=== PATIENT | female | born 1960 | race Two or more races ===

== ENCOUNTER → 2016-12-02 | Outpatient (CLI) | payer MEDICAID ==
[2016-12-02 10:38] LABS: HEMATOCRIT 40.6 % (36.0-47.0); HEMOGLOBIN 13.5 g/dL (12.0-15.5); HGB HCT DIFFERENCE -0.1; MEAN CORPUSCULAR HEMOGLOBIN 29.5 pg (27.0-33.4); MEAN CORPUSCULAR HGB CONC 33.4 g/dL (32.0-36.0); MEAN CORPUSCULAR VOLUME 88 fl (80-97); RED BLOOD COUNT 4.59 10^6/uL (3.72-5.28); RED CELL DISTRIBUTION WIDTH 13.1 % (11.5-14.0); WHITE BLOOD COUNT 5.5 10^3/uL (4.0-10.5)
[2016-12-02 11:08] LABS: ALBUMIN 4.4 g/dL (3.5-5.0); BILIRUBIN,TOTAL 0.4 mg/dL (0.2-1.3); TOTAL PROTEIN 6.8 g/dL (6.3-8.2)
== END ==
LOC: OD 10:01
PROVIDERS: ATTEND Specialist
DX: G40.89 Other seizures (principal); Z79.899 Other long term (current) drug therapy
CPT/HCPCS: 36415; 80076; 80175; 85027

== ENCOUNTER → 2017-08-15 | Outpatient (CLI) | payer SELFPAY ==
[2017-08-15 12:14] LABS: ABSOLUTE BASOPHILS # (AUTO) 0.1 10^3/uL (0.0-0.2); ABSOLUTE EOSINOPHILS # (AUTO) 0.2 10^3/uL (0.0-0.6); ABSOLUTE LYMPHOCYTES (AUTO) 1.7 10^3/uL (0.5-4.7); ABSOLUTE MONOCYTES (AUTO) 0.4 10^3/uL (0.1-1.4); ABSOLUTE NEUT (AUTO) 3.6 10^3/uL (1.7-8.2); BASOPHILS % (AUTO) 0.8 % (0-2); EOSINOPHILS % (AUTO) 2.9 % (0-6); HEMATOCRIT 37.9 % (36.0-47.0); HEMOGLOBIN 13.1 g/dL (12.0-15.5); HGB HCT DIFFERENCE 1.4; LYMPHOCYTES % (AUTO) 28.2 % (13-45); MEAN CORPUSCULAR HEMOGLOBIN 30.9 pg (27.0-33.4); MEAN CORPUSCULAR HGB CONC 34.6 g/dL (32.0-36.0); MEAN CORPUSCULAR VOLUME 89 fl (80-97); MONOCYTES % (AUTO) 7.2 % (3-13); RED BLOOD COUNT 4.24 10^6/uL (3.72-5.28); RED CELL DISTRIBUTION WIDTH 12.5 % (11.5-14.0); SEGMENTED NEUTROPHILS % (AUTO) 60.9 % (42-78)
[2017-08-15 12:41] LABS: ALANINE AMINOTRANSFERASE 48 U/L (9-52); ALBUMIN 4.6 g/dL (3.5-5.0); ALKALINE PHOSPHATASE 98 U/L (38-126); ASPARTATE AMINO TRANSFERASE 33 U/L (14-36); BILIRUBIN,DIRECT 0.5 mg/dL (0.0-0.4); BILIRUBIN,TOTAL 0.5 mg/dL (0.2-1.3)
== END ==
LOC: OD 11:23
PROVIDERS: ATTEND Specialist
DX: G40.89 Other seizures (principal); Z79.899 Other long term (current) drug therapy
CPT/HCPCS: 36415; 80076; 80175; 85025

== ENCOUNTER → 2018-08-20 | Outpatient (CLI) | payer MEDICARE, MEDICAID ==
[2018-08-20 10:51] LABS: HEMATOCRIT 38.6 % (36.0-47.0); HEMOGLOBIN 13.2 g/dL (12.0-15.5); MEAN CORPUSCULAR HEMOGLOBIN 30.3 pg (27.0-33.4); MEAN CORPUSCULAR HGB CONC 34.2 g/dL (32.0-36.0); MEAN CORPUSCULAR VOLUME 89 fl (80-97); PLATELET COUNT 263 10^3/uL (150-450); RED BLOOD COUNT 4.36 10^6/uL (3.72-5.28); RED CELL DISTRIBUTION WIDTH 12.1 % (11.5-14.0); WHITE BLOOD COUNT 4.8 10^3/uL (4.0-10.5)
[2018-08-20 11:16] LABS: ALANINE AMINOTRANSFERASE 37 U/L (9-52); ALBUMIN 4.4 g/dL (3.5-5.0); ALKALINE PHOSPHATASE 118 U/L (38-126); ASPARTATE AMINO TRANSFERASE 39 U/L (14-36); BILIRUBIN,DIRECT 0.2 mg/dL (0.0-0.4); BILIRUBIN,TOTAL 0.3 mg/dL (0.2-1.3); TOTAL PROTEIN 7.3 g/dL (6.3-8.2)
== END ==
LOC: OD 09:46
PROVIDERS: ATTEND Specialist
DX: G40.89 Other seizures (principal); Z79.899 Other long term (current) drug therapy
CPT/HCPCS: 36415; 80076; 80175; 80177; 85027

== ENCOUNTER 2018-10-11 15:53 | Emergency (ER) | payer MEDICARE, MEDICAID ==
[2018-10-11] MEDS ORDERED: ACETAMINOPHEN 325 MG TABLET PO ONE (17:13)
[2018-10-11] MEDS ORDERED: DIPH/PERTUSS(ACELL)/TETANUS VAC/PF 0.5 ML SYR (>=10YO) IM ONE (17:13)
--- NOTE | 2018-10-11 17:15 | ER Document Report ---
HPI - HPI Patient complains to provider of: Head laceration Time Seen by Provider: 10/11/18 17:03 Onset: Just prior to arrival Onset/Duration: Sudden Quality of pain: Achy Pain Level: 1 Context: Patient states that she has foot drop to her left foot and will have frequent falls at home. Patient states she was attempting to go up the stairs and lost her footing and fell. Patient reports hitting her head on the step. Patient denies any loss of consciousness nausea or vomiting. Patient with small laceration to the right lateral brow area. Associated Symptoms: Other - Facial laceration Exacerbated by: Denies Relieved by: Denies Similar symptoms previously: Yes Recently seen / treated by doctor: No - ROS ROS below otherwise negative: Yes Systems Reviewed and Negative: Yes All other systems reviewed and negative - CONSTITUTIONAL Constitutional: DENIES: Fever - NEURO Neurology: REPORTS: Headache. DENIES: Weakness, Vision blurred, Dizzinesss / Vertigo - CARDIOVASCULAR Cardiovascular: DENIES: Chest pain - GASTROINTESTINAL Gastrointestinal: DENIES: Nausea, Patient vomiting - REPRODUCTIVE Reproductive: DENIES: : - MUSCULOSKELETAL Musculoskeletal: DENIES: Back Pain, Neck Pain - DERM Skin Color: Normal Skin Problems: Laceration Past Medical History - General Information source: Patient - Social History Smoking Status: Never Smoker Frequency of alcohol use: None Drug Abuse: None Occupation: None Lives with: Spouse/Significant other Family History: Reviewed & Not Pertinent - Past Medical History Cardiac Medical History: Reports: Hx Hypercholesterolemia, Hx Hypertension Pulmonary Medical History: Reports: Hx Asthma Denies: Hx Tuberculosis Neurological Medical History: Reports: Hx Seizures Musculoskeletal Medical History: Reports Other - Left foot drop Psychiatric Medical History: Reports: Hx Attention Deficit Hyperactivity Disorder, Hx Depression, Hx Schizophrenia Past Surgical History: Reports: Hx Neurologic Surgery - brain sx - Immunizations Immunizations up to date: Yes Hx Diphtheria, Pertussis, Tetanus Vaccination: No Hx Pneumococcal Vaccination: 10/15/13 Vertical Provider Document - CONSTITUTIONAL Agree With Documented VS: Yes Exam Limitations: No Limitations General Appearance: WD/WN, No Apparent Distress - INFECTION CONTROL TRAVEL OUTSIDE OF THE [place] IN LAST 30 DAYS: No - HEENT HEENT: Normal ENT Exam, Normocephalic, PERRLA Notes: Half centimeter laceration to the right brow area, EOMI - NECK Neck: Normal Inspection, Supple. negative: Lymphadenopathy-Left, Lymphadenopathy-Right - RESPIRATORY Respiratory: Breath Sounds Normal, No Respiratory Distress - CARDIOVASCULAR Cardiovascular: Regular Rate, Regular Rhythm - MUSCULOSKELETAL/EXTREMETIES Musculoskeletal/Extremeties: MAEW - NEURO Level of Consciousness: Awake, Alert, Appropriate Motor/Sensory: No Motor Deficit - DERM Integumentary: Warm, Dry, Laceration - 1/2 cm lac to right brow Course - Re-evaluation Re-evalutation: 10/11/18 The patient presents with headache without signs of SPOKE MAKER bleed, stroke, infection, or other serious etiology. The patient is neurologically intact. Given the extremely low risk of these diagnoses further testing and evaluation for these possibilities does not appear to be indicated at this time. The patient has been instructed to return if the symptoms worsen or change in any way. - Vital Signs Vital signs: Temp Pulse Resp BP Pulse Ox 97.9 F 59 L 16 116/66 98 10/11/18 16:01 10/11/18 16:01 10/11/18 16:01 10/11/18 16:01 10/11/18 16:01 Procedures - Laceration/Wound Repair Right Face Wound length (cm): 0.5 Wound's Depth, Shape: Irregular Laceration pre-procedure: Shur-Clens applied Wound explored: Clean Wound Repaired With: Dermabond Post-procedure NV exam normal: Yes Complications: No Adult Head Front/Back picture: 1 - lac Discharge - Discharge Clinical Impression: Head injury Qualifiers: Encounter type: initial encounter Qualified Code(s): S09.90XA - Unspecified inj ury of head, initial encounter Facial laceration Qualifiers: Encounter type: initial encounter Qualified Code(s): S01.81XA - Laceration without foreign body of other part of head, initial encounter Condition: Stable Disposition: HOME, SELF-CARE Instructions: Acetaminophen, Facial Laceration ([facility]), Head Injury Precautions ([facility]), Skin Adhesive Closure ([facility]) Additional Instructions: Return immediately for any new or worsening symptoms Followup with your primary care provider, call tomorrow to make a followup appointment Referrals: JOSIAS DENNIS MD [NO LOCAL MD] - Follow up as needed
--- NOTE | 2018-10-11 17:54 | RADIOLOGY REPORT (SQ) ---
EXAM DESCRIPTION: CT ORBIT/SELLA WITHOUT COMPLETED DATE/TIME: 10/11/2018 5:42 pm REASON FOR STUDY: fall, facial injury COMPARISON: None. TECHNIQUE: Noncontrasted images through the orbits windowed for bone and soft tissue. Additional co jn and sagittal reconstructed images reviewed. All images stored on PACS. All CT scanners at this facility use dose modulation, iterative reconstruction, and/or weight based d osing when appropriate to reduce radiation dose to as low as reasonably achievable (ALARA). [facility]: Dose Right [facility]: CareDose [facility]: Dose Right [facility]: Teradose 4D [facility]: [employer] RADIATION DOSE: CT Rad equipment meets quality standard of care and radiation dose reduction techniq ues were employed. CTDIvol: 30.4 mGy. DLP: 310 mGy-cm. mGy. LIMITATIONS: None. FINDINGS: FACIAL BONES: No fracture or bone lesion. ORBITS: Intact. No fracture. Symmetric intact globes and retroorbital soft tissues. PARANASAL SINUSES: Clear. No significant mucosal thickening, mass or fluid. No nasal polyps. Maxilla ry sinus outlets are patent. SOFT TISSUES: No mass or edema. INFERIOR BRAIN: Limited view. No acute findings. OTHER: No other significant finding. IMPRESSION: NO ACUTE FINDINGS. TECHNICAL DOCUMENTATION: JOB ID: [id number] Quality ID # [id number]: Final reports with documentation of one or more dose reduction techniques (e.g., Au tomated exposure control, adjustment of the mA and/or kV according to patient size, use of iterative reconstruction technique) 2010 [employer]- All Rights Reserved Reading location - IP/workstation name: [email or web address]
[2018-10-11 18:16] VITALS: BP 121/63
== END 2018-10-11 18:24 | disposition home or self-care (01) ==
LOC: ER 15:53
DX: S01.81XA Laceration without foreign body of other part of head, initial encounter (principal); S09.90XA Unspecified injury of head, initial encounter; W10.9XXA Fall (on) (from) unspecified stairs and steps, initial encounter; Y92.009 Unspecified place in unspecified non-institutional (private) residence as the place of occurrence of the external cause; E78.00 Pure hypercholesterolemia, unspecified; I10 Essential (primary) hypertension; Z23 Encounter for immunization
CPT/HCPCS: 99283; 90471; 70480; 90715; 12011; A9270

== ENCOUNTER 2019-01-04 09:20 | Emergency (ER) | payer MEDICARE, MEDICAID ==
[2019-01-04] MEDS ORDERED: NORMAL SALINE 1000 ML 1,000 ML IV ONE (09:36)
[2019-01-04] MEDS ORDERED: ONDANSETRON HCL INJ/PF 4 MG/2 ML SDV IV ONE (09:36)
--- NOTE | 2019-01-04 09:38 | ER Document Report ---
ED Medical Screen (RME) - General Chief Complaint: Vomiting Stated Complaint: VOMITING Time Seen by Provider: 01/04/19 09:32 Mode of Arrival: Ambulatory Information source: Patient Notes: Patient is a 58-year-old female who presents to the emergency department after multiple episodes of vomiting this morning that she states had blood in it. Patient reports that she was undergoing a bowel prep for a colonoscopy that was scheduled for today when she began vomiting. Patient states she had just finished drinking her GoLYTELY. She reports the vomit was clear with red tinges so she believes it was blood. Patient denies any other symptoms at this time other than a mild headache. Exam: Patient alert, oriented and answering all questions appropriately. Abdomen soft. I have greeted and performed a rapid initial assessment of this patient. A comprehensive ED assessment and evaluation of the patient, analysis of test results and completion of the medical decision making process will be conducted by additional ED providers. Dictation of this chart was performed using voice recognition software; therefore, there may be some unintended grammatical errors. TRAVEL OUTSIDE OF THE [place] IN LAST 30 DAYS: No - Related Data Allergies/Adverse Reactions: No Known Allergies Allergy (Verified 10/11/18 15:56) Past Medical History - Past Medical History Cardiac Medical History: Reports: Hx Hypercholesterolemia, Hx Hypertension Pulmonary Medical History: Reports: Hx Asthma Denies: Hx Tuberculosis Neurological Medical History: Reports: Hx Seizures Renal/ Medical History: Denies: Hx Peritoneal Dialysis Psychiatric Medical History: Reports: Hx Attention Deficit Hyperactivity Disorder, Hx Depression, Hx Schizophrenia Past Surgical History: Reports: Hx Neurologic Surgery - brain sx - Immunizations Immunizations up to date: Yes Hx Diphtheria, Pertussis, Tetanus Vaccination: No Physical Exam - Vital signs Vitals: Temp Pulse Resp BP Pulse Ox 98.2 F 66 14 149/77 H 97 01/04/19 09:25 01/04/19 09:25 01/04/19 09:25 01/04/19 09:25 01/04/19 09:25 Course - Vital Signs Vital signs: Temp Pulse Resp BP Pulse Ox 98.2 F 66 14 149/77 H 97 01/04/19 09:25 01/04/19 09:25 01/04/19 09:25 01/04/19 09:25 01/04/19 09:25
[2019-01-04 10:13] LABS: ABSOLUTE LYMPHOCYTES (AUTO) 0.8 10^3/uL (0.5-4.7); ABSOLUTE MONOCYTES (AUTO) 0.3 10^3/uL (0.1-1.4); ABSOLUTE NEUT (AUTO) 5.1 10^3/uL (1.7-8.2); BASOPHILS % (AUTO) 0.3 % (0-2); EOSINOPHILS % (AUTO) 0.8 % (0-6); HEMOGLOBIN 13.4 g/dL (12.0-15.5); LYMPHOCYTES % (AUTO) 12.5 % (13-45); MEAN CORPUSCULAR HEMOGLOBIN 30.3 pg (27.0-33.4); MEAN CORPUSCULAR HGB CONC 33.6 g/dL (32.0-36.0); MEAN CORPUSCULAR VOLUME 90 fl (80-97); MONOCYTES % (AUTO) 4.8 % (3-13); PLATELET COUNT 244 10^3/uL (150-450); RED BLOOD COUNT 4.43 10^6/uL (3.72-5.28); RED CELL DISTRIBUTION WIDTH 12.8 % (11.5-14.0); SEGMENTED NEUTROPHILS % (AUTO) 81.6 % (42-78); TOTAL CELLS COUNTED % (AUTO) 100 %; WHITE BLOOD COUNT 6.2 10^3/uL (4.0-10.5)
--- NOTE | 2019-01-04 10:17 | ER Document Report ---
ED GI/ - General Chief Complaint: Vomiting Stated Complaint: VOMITING Time Seen by Provider: 01/04/19 09:32 Primary Care Provider: RUBEN VIRAMONTES PA-C [Primary Care Provider] - Follow up as needed Mode of Arrival: Ambulatory Notes: Patient was scheduled for a routine colonoscopy this morning. She had a previous colonoscopy 5 or 6 years ago which showed polyps, but she is currently having no symptoms. She was doing her prep consisting of magnesium citrate and Dulcolax suppositories Monday night, followed yesterday by Shannon she began vomiting about 4 AM this morning and is vomited a total of 3-4 times. She vomited on the floor next to her bed. She says that 2 of the episodes of vomiting had "globs of blood". She has not vomited since about 5 AM. Denies any abdominal pains. She was scheduled for her colonoscopy at 8 AM this morning, but is unable to go there. Patient has never had any gastrointestinal diseases or bleeding, either vomiting blood or passing blood by rectum. Currently has no other symptoms. Has not had any recent illness or fever. PMH: Seizures, depression, vertigo. TRAVEL OUTSIDE OF THE [place] IN LAST 30 DAYS: No - Related Data Allergies/Adverse Reactions: No Known Allergies Allergy (Verified 10/11/18 15:56) Past Medical History - General Information source: Patient - Social History Smoking Status: Unknown if Ever Smoked Family History: Reviewed & Not Pertinent Patient has suicidal ideation: No Patient has homicidal ideation: No - Past Medical History Cardiac Medical History: Reports: Hx Hypercholesterolemia Pulmonary Medical History: Reports: Hx Asthma Neurological Medical History: Reports: Hx Seizures - On Keppra, Lamictal, and Topamax Psychiatric Medical History: Reports: Hx Attention Deficit Hyperactivity Disorder, Hx Depression Past Surgical History: Reports: Hx Neurologic Surgery - clot removal from brain bleed 30 years ago. - Immunizations Immunizations up to date: Yes Hx Diphtheria, Pertussis, Tetanus Vaccination: No Hx Pneumococcal Vaccination: 10/15/13 Review of Systems - Review of Systems Notes: REVIEW OF SYSTEMS: CONSTITUTIONAL : Denies fever. EENT: Denies eye, ear, nose or mouth or throat pain or other symptoms. CARDIOVASCULAR: Denies chest pain. RESPIRATORY: Denies cough, chest congestion, or shortness of breath. GASTROINTESTINAL: See HPI. GENITOURINARY: Denies difficulty or painful urinating, urinary frequency, blood in urine. MUSCULOSKELETAL: Denies back or neck pain. Denies joint pain or swelling. SKIN: Denies rash or skin lesions. NEUROLOGICAL: Denies LOC or altered mental status. Denies headache. Denies sensory loss or motor deficits. History of vertigo on meclizine. ALL OTHER SYSTEMS REVIEWED AND NEGATIVE. Physical Exam - Vital signs Vitals: Temp Pulse Resp BP Pulse Ox 98.2 F 66 14 149/77 H 97 01/04/19 09:25 01/04/19 09:25 01/04/19 09:25 01/04/19 09:25 01/04/19 09:25 Interpretation: Normal. No: Hypotensive, Tachycardic, Febrile Notes: PHYSICAL EXAMINATION: GENERAL: Well-appearing, in no acute distress. Vital signs are all normal. HEAD: Atraumatic, normocephalic. EYES: Pupils equal round and reactive to light, extraocular movements intact. ENT: oropharynx clear without exudates. Moist mucous membranes. NECK: Normal range of motion, supple. LUNGS: Breath sounds clear and equal bilaterally. HEART: Regular rate and rhythm without murmurs. ABDOMEN: Soft, nontender. No guarding or rebound. No masses. BACK: No tenderness throughout entire back. EXTREMITIES: Normal range of motion without pain. NEUROLOGICAL: Normal speech, normal gait. Normal sensory, motor, and reflex exams. Awake, alert, and oriented x3. PSYCH: Normal mood, normal affect. SKIN: Warm, dry, no rashes. Course - Re-evaluation Re-evalutation: 01/04/19 10:18 Patient appears well. Routine labs will be ordered. She will receive some IV fluids and IV Zofran. 01/04/19 12:43 Patient's hemoglobin is 13.4. She consistently has a hemoglobin in the 13's going all the way back to August 2016. All the remaining lab studies are essentially normal. Patient is feeling much better. No further vomiting. No nausea at this time. We will send her home with a prescription for Zofran should she needed. Follow-up with her GI doctor. - Vital Signs Vital signs: Temp Pulse Resp BP Pulse Ox 98.2 F 66 14 149/77 H 97 01/04/19 09:25 01/04/19 09:25 01/04/19 09:25 01/04/19 09:25 01/04/19 09:25 - Laboratory Result Diagrams: 01/04/19 09:45 01/04/19 11:50 Laboratory results interpreted by me: 01/04/19 01/04/19 09:45 11:50 Seg Neutrophils % 81.6 H Lymphocytes % 12.5 L Chloride 111 H AST 41 H Discharge - Discharge Clinical Impression: Vomiting, Abdominal pain Disposition: HOME, SELF-CARE Additional Instructions: VOMITING: Vomiting (or nausea without vomiting) can be caused by many other different problems. It can mean that something's wrong with the stomach, such as ulcers or inflammation or the intestinal tract, such as appendicitis. But it can also be a symptom of a problem that has nothing to do with the stomach or intestines. Vomiting is common with severe headaches, earaches, tonsillitis, and kidney infections, etc. We see it with pneumonia or heart attacks. Drugs can cause nausea and vomiting. Many abdominal problems cause vomiting; for example, gallstones, kidney stones, pancreatitis, and intestinal obstruction (blocked bowels). In most cases, curing the vomiting depends on fixing the problem that cau sed it. For temporary relief, we may use an anti-nausea medicine. For home use, we can prescribe suppositories, chewable pills, pills that dissolve in the mouth, or liquid anti-nausea drugs. If the vomiting seems to be caused by a problem in the stomach, acid-suppressing drugs may be prescribed as well. It's important to avoid dehydration. Sip small amounts of clear liquids (soft drinks, tea, broth, etc) . Try to take fluids frequently even if you are vomiting to prevent dehydration. Take increasing amounts of fluid and when liquids are being consumed successfully, advance to small amounts of bland food (toast, soups, mashed potatoes, etc.) until you are able to resume a regular diet. Avoid aspirin, tobacco, and alcohol. If the vomiting worsens, if the problem that's making you vomit worsens, or if there's evidence of bleeding in the stomach (such as black, tarry stool, or bloody or black vomit), you should return immediately. Also, return if abdominal pain worsens or becomes localized to one area or you develop high fever. Call your doctor if you aren't improved in 24 hours. INTRAVENOUS (I V) FLUIDS: As part of your care today, you received intravenous (IV) fluids. IV fluids are administered to patients who are dehydrated or to those who have certain chemical (electrolyte) abnormalities that need correcting. ANTINAUSEA MEDICATION: You have been given a medication to suppress nausea and vomiting. This type of medication can be given as a shot, pill, or suppository. It will usually last for many hours. Pills and shots usually last six to eight hours. For the typical illness, only one or two doses of the medication may be necessary. Mild lightheadedness may occur. This type of medicine can cause drowsiness. Do not drive or operate dangerous machinery while under its influence. Do not mix with alcohol. See your doctor at once if you have muscle spasms or tightness, or uncontrollable motions (particularly of the neck, mouth, or jaw). Persistent vomiting or severe lightheadedness should also be evaluated by the physician. NORMAL EXAM AND WORKUP: At this time, your examination and workup show no significant abnormality. No significant abnormal physical findings were noted. All laboratory, EKG, and imaging (x-ray, CT scans, ultrasound) studies that were ordered show no significant abnormality. Although your examination and all studies that were ordered showed no significant abnormal finding, there are no examinations and no studies that are 100% accurate. There is always the possibility that some abnormality could exist and not be detected with physical examination or within the limits and capabilities of laboratory and other studies. You should return or follow up as you were instructed on your visit today for further evaluation if your symptoms do not resolve. Your hemoglobin red blood cell count is the same as it has been for the past 2 years. FOLLOW-UP CARE: If you have been referred to a physician for follow-up care, call the physicians office for an appointment as you were instructed or within the next two days. If you experience worsening or a significant change in your symptoms, notify the physician immediately or return to the Emergency Department at any time for re-evaluation. Prescriptions: Ondansetron [Zofran Odt 4 mg Tablet] 1 - 2 tab PO Q4H PRN #6 tab.rapdis PRN Reason: For Nausea/Vomiting Referrals: RUBEN VIRAMONTES PA-C [Primary Care Provider] - Follow up as needed
[2019-01-04] MEDS ORDERED: ACETAMINOPHEN 325 MG TABLET PO ONE (10:55)
[2019-01-04 12:29] LABS: ALANINE AMINOTRANSFERASE 36 U/L (9-52); ALKALINE PHOSPHATASE 107 U/L (38-126); ANION GAP 8 (5-19); ASPARTATE AMINO TRANSFERASE 41 U/L (14-36); BILIRUBIN,DIRECT 0.2 mg/dL (0.0-0.4); BILIRUBIN,TOTAL 0.3 mg/dL (0.2-1.3); BLOOD UREA NITROGEN 14 mg/dL (7-20); CALCIUM 9.4 mg/dL (8.4-10.2); CARBON DIOXIDE 22 mmol/L (22-30); CHLORIDE 111 mmol/L (98-107); GLUCOSE 103 mg/dL (75-110); POTASSIUM 3.9 mmol/L (3.6-5.0); SODIUM 141.1 mmol/L (137-145); TOTAL PROTEIN 6.8 g/dL (6.3-8.2)
[2019-01-04 13:00] VITALS: BP 137/78
== END 2019-01-04 13:01 | disposition home or self-care (01) ==
LOC: ER 09:20
DX: K92.0 Hematemesis (principal); R10.9 Unspecified abdominal pain; J45.909 Unspecified asthma, uncomplicated; R42 Dizziness and giddiness; Z79.899 Other long term (current) drug therapy
CPT/HCPCS: 99283; 96360; 36415; 85025; 80053; A9270; J2405; J7030

== ENCOUNTER → 2019-03-22 | Outpatient (CLI) | payer MEDICARE, MEDICAID | LOC: OD 07:47 | PROVIDERS: ATTEND Specialist | DX: G40.89 Other seizures (principal); Z79.899 Other long term (current) drug therapy | CPT/HCPCS: 36415; 80175; 80177 ==

== ENCOUNTER → 2019-12-02 | Outpatient (CLI) | payer MEDICARE, MEDICAID ==
[2019-12-02 11:18] LABS: HEMATOCRIT 39.2 % (36.0-47.0); HEMOGLOBIN 13.5 g/dL (12.0-15.5); MEAN CORPUSCULAR HEMOGLOBIN 30.8 pg (27.0-33.4); MEAN CORPUSCULAR HGB CONC 34.5 g/dL (32.0-36.0); MEAN CORPUSCULAR VOLUME 89 fl (80-97); PLATELET COUNT 265 10^3/uL (150-450); RED BLOOD COUNT 4.39 10^6/uL (3.72-5.28); RED CELL DISTRIBUTION WIDTH 12.4 % (11.5-14.0); WHITE BLOOD COUNT 5.2 10^3/uL (4.0-10.5)
[2019-12-02 11:42] LABS: ALBUMIN 4.8 g/dL (3.5-5.0); ALKALINE PHOSPHATASE 101 U/L (38-126); ANION GAP 11 (5-19); ASPARTATE AMINO TRANSFERASE 35 U/L (14-36); BILIRUBIN,DIRECT 0.4 mg/dL (0.0-0.4); BILIRUBIN,TOTAL 0.4 mg/dL (0.2-1.3); BLOOD UREA NITROGEN 23 mg/dL (7-20); CARBON DIOXIDE 26 mmol/L (22-30); CHLORIDE 104 mmol/L (98-107); GLUCOSE 81 mg/dL (75-110); POTASSIUM 4.5 mmol/L (3.6-5.0); TOTAL PROTEIN 7.7 g/dL (6.3-8.2)
[2019-12-02 12:52] LABS: FOLATE > 20.00 ng/mL (>2.76)
== END ==
LOC: OD 10:37
PROVIDERS: ATTEND Nurse Practitioner Family
DX: R51 Headache (principal); R56.9 Unspecified convulsions
CPT/HCPCS: 36415; 80053; 80175; 82306; 82607; 82746; 85027

== ENCOUNTER → 2020-03-06 | Outpatient (CLI) | payer MEDICARE, MEDICAID | LOC: OD 10:54 | PROVIDERS: ATTEND Otolaryngology | DX: J30.9 Allergic rhinitis, unspecified (principal) | CPT/HCPCS: 36415; 82785; 86003 ==

== ENCOUNTER 2020-06-16 08:30 | Day surgery (SDC) | payer MEDICARE, MEDICAID ==
[~2020-06-16 08:30] MED LIST: DEXAMETHASONE SOD PHOS INJ 10 MG/1 ML VIAL ONE; FAMOTIDINE INJ/PF 20 MG/2 ML SDV IV ONE; FENTANYL CITRATE INJ/PF 100 MCG/2 ML AMPUL ONE; GLYCOPYRROLATE INJ 0.4 MG/2 ML VIAL ONE; LIDOCAINE 2% INJ-PF (100 MG/5 ML) SYRINGE ONE; MIDAZOLAM 2 MG/2 ML INJ ONE; MORPHINE SULFATE 10 MG/ML INJ ONE; ONDANSETRON HCL INJ/PF 4 MG/2 ML SDV ONE; PROPOFOL INJ 200 MG/20 ML VIAL IV ONE; SUCCINYLCHOLINE CHLORIDE INJ 200 MG/10 ML VIAL ONE
[2020-06-16] MEDS ORDERED: CEFAZOLIN 2 GM/D5W RTU 2 GM/50 ML RTUPB IV ONE (09:16)
[2020-06-16] MEDS ORDERED: BUPIVACAINE HCL 0.5%/EPI 1:200000 INJ 1.8 ML CARTRIDGE ONE (09:28)
[2020-06-16] MEDS ORDERED: LIDOCAINE 2%/EPINEPHRINE INJ 1.7 ML CARTRIDGE ONE ×2 (09:29→10:02)
[2020-06-16] MEDS ORDERED: COCAINE HCL 4% TOPICAL SOLN 4 ML ONE (09:29)
[2020-06-16] MEDS ORDERED: OXYMETAZOLINE HCL 0.05% NASAL SPRAY 15 ML BOTTLE ONE (09:29)
[2020-06-16] MEDS: BACITRACIN ZINC OINTMENT 15 GM ONE ×2 (11:00)
--- NOTE | 2020-06-16 11:56 | Operative Report ---
Operative Report-[facility] Operative Report: Date: 16 June 2020 History: 60-year-old female presents with a history of nasal dyspnea and ex ternal nasal deformity. Physical exam revealed a external nasal deformity, deviated nasal septum, and inferior turbinate hypertrophy. Presents today for a functional septorhinoplasty and inferior turbinate reduction. Pre-operative diagnosis: 1. Deviated nasal septum 2. Inferior turbinate hypertrophy, bilateral 3. External nasal deformity Post operative diagnosis: same as above. Procedure: 1. Functional Rhinoplasty [CPT: 39154] 2. Nasal Septoplasty [CPT: 86169] 3. Inferior turbinate reduction, right side [CPT: 57856] 4 . Inferior turbinate reduction, left side [CPT: 44072] Surgeon: Ambrocio Rossi MD, FACS, [facility] Anesthia: LORENZO Description of the procedure: After receiving informed consent, the patient was brought to the operating room and placed supine on the operating table. After successful induction and intubation by anesthesia, cottonoids soaked with 4% cocaine replaced into each nasal cavity for approximately five minutes. They were removed andthe septum along with the inferior turbinate were injected with 2% Xylocaine with 1:100,000 epinephrine. The cottonoids were replaced. The patient was then prepped and draped in a sterile fashion. The cottonoids where then removed. A number 15 blade was used to make a ophelia transfixtion incision on the left side. Next using a Silver and then A Hays elevator, a mucoperichondrial/mucoperiosteal flap was elevated back to the sphenoid rostrum. This was then elevated onto the nasal floor. A mucoperichondrial flap was elevated around the caudal edge of the septum and onto the right side. This exposed both sides of the cartilaginous/osseous septum. The osseocartilaginous junction was and a mucoperiosteal flap was elevated on the right side. Llamas scissors were used to make horizontal cuts in the perpendicular plate of the ethmoid bone, superiorly and inferiorly. Thai-Romero forceps were used to remove this. A vomeroethmoid spur was identified and the mucosa was carefully dissected from it. A V-chisel was used to remove this spur. An inferior cartilage spur was removed using a D knife . Maxillary crest spur was removed using a V chisel. [place]-Henry's were used to remove a high septal deflection in the area of the internal nasal valve. The septum was viewed with the flaps in place and found to be relatively straight. The middle turbinates were visible on both sides. A 15 blade was used to make an intercartilaginous incision on the left side. Using iris scissors, the skin envelope was elevated over the underlying cartilage. Osseous dorsal hump was revealed. The periosteum was carefully dissected from the dorsal hump. This was reduced using a double guarded osteotome and sequential rasping. The profile was viewed and found to be aesthetically pleasing. The intercartilaginous vision was closed using 4-0 chromic. The ophelia transfixion incision was closed using 4-0 chromic and a 4-0 plain gut whip stitch was used to secure the septal flaps. Attention was then directed to the inferior turbinates. Inferior turbinate reduction was performed using the Intrallecton turbinate system and the turbinate microdebrider. Intramural cauterization along with removal of submucosal tissue using the microdebrider was performed on the left inferior turbinate and then this turbinate was medialized and lateralized using a Sayer elevator. The procedure was done on the right side. Silicon splints coated with bacitracin were placed into each nasal cavity and secured with a 2-0 prolene. Afrin soaked cottonoids were placed into each nasal cavity and secured to each other in front of the nose. Mastisol , Steri-Strips and a splint were applied over the dorsum of the nose. The patient was then given back to anesthesia who successfully extubated them. The patient tolerated the procedure well without any complications. Estimated blood loss: 15 mL Fluids: 800 mL The patient was transferred to the post anesthesia care unit in stable condition with spontaneous respirations.
[2020-06-16] MEDS ORDERED: ALBUTEROL SULFATE 0.083% NEB 2.5 MG/3 ML AMPUL NEB ONE (12:12)
== END 2020-06-16 14:01 | disposition home or self-care (01) ==
LOC: SC 08:30
PROVIDERS: ATTEND Otolaryngology
DX: M95.0 Acquired deformity of nose (principal); J34.3 Hypertrophy of nasal turbinates; J34.89 Other specified disorders of nose and nasal sinuses; J34.2 Deviated nasal septum; M06.9 Rheumatoid arthritis, unspecified; J45.909 Unspecified asthma, uncomplicated; G40.909 Epilepsy, unspecified, not intractable, without status epilepticus; Z79.899 Other long term (current) drug therapy
CPT/HCPCS: 00160; 30420; 30140; U0003; J2250; A9270 ×3; J3490; C9046; J3010; J2001; J2270; J0330; J2405; J2704; S0028; J1100; J0690; C9803; 160; 87635; J7613